=== PATIENT | female | born 1960 | race Caucasian/White ===

== ENCOUNTER 2017-09-03 12:08 | Emergency (ER) | payer BC ==
[~2017-09-03] VITALS: Ht 172.7 cm; Wt 65.0 kg
[2017-09-03 12:25] VITALS: BP 119/78; PULSE 88; RESP 16; TEMP 98.4; O2SAT 98
[2017-09-03] MEDS ORDERED: NATU32.5 PO (12:32)
[2017-09-03] MEDS ORDERED: IBUPROFEN 600 MG TAB PO ONE (13:15)
--- NOTE | 2017-09-03 13:52 | RADRPT ---
EXAM DATE/TIME: 09/03/2017 13:29 [place] COMPARISON: No previous studies available for comparison. INDICATIONS : Left ankle pain post fall. MEDICAL HISTORY : None. SURGICAL HISTORY : None. ENCOUNTER: Initial ACUITY: 2 days PAIN SCORE: 9/10 LOCATION: Left lateral ankle FINDINGS: Three view exam was performed of the left ankle. The bony structures are in normal alignment. No ev idence of fracture, dislocation, however there is soft tissue swelling. The ankle mortise is intact. No radiopaque foreign bodies are seen. Bony mineralization is normal. CONCLUSION: Soft tissue swelling no fracture. Gustavo Haney MD on September 03, 2017 at 13:50 Board Certified Radiologist. This report was verified electronically.
--- NOTE | 2017-09-03 14:05 | PD ---
HPI . Left ankle injury Chief Complaint: Injury Time Seen by Provider: 12:45 Travel History International Travel<30 days: No Contact w/Intl Traveler<30days: No Traveled to known affect area: No History of Present Illness HPI 57-year-old female presents emergency department for evaluation of left ankle pain that started yesterday when she stepped off of a curb and high heels and twisted her ankle. Patient has been ambulatory with a limp. Patient has no major medical history. Patient denies any other injuries with this event. The left foot is neurovascularly intact. There is no obvious deformity. PFSH Social History Alcohol Use: No Tobacco Use: No Substance Use: No Allergies-Medications (Allergen,Severity, Reaction): Coded Allergies: No Known Allergies (Unverified , 09/03/17) Reported Meds & Prescriptions Reported Meds & Active Scripts Active Reported Nature-Throid (Thyroid) 32.5 Mg Tab 32.5 Mg PO DAILY Review of Systems Except as stated in HPI: all other systems reviewed are Neg Physical Exam Narrative GENERAL: Well-nourished, well-developed 57-year-old female patient in no acute distress. Nontoxic appearing. SKIN: Focused skin assessment warm/dry. HEAD: Normocephalic. Atraumatic. NECK: Supple, trachea midline. No JVD or lymphadenopathy. CARDIOVASCULAR: Regular rate and rhythm without murmurs, gallops, or rubs. Pedal pulses +2 bilaterally. RESPIRATORY: Breath sounds equal bilaterally. No accessory muscle use. GASTROINTESTINAL: Abdomen soft, non-tender, nondistended. MUSCULOSKELETAL: Mild ecchymosis and edema noted to the surrounding lateral malleolus. No obvious deformity. BACK: Nontender without obvious deformity. No CVA tenderness. Data Data Last Documented VS Vital Signs Date Time Temp Pulse Resp B/P (MAP) Pulse Ox O2 Delivery O2 Flow Rate FiO2 09/03/17 12:25 98.4 88 16 119/78 (92) 98 Orders Orders Ankle, Complete ([id number]) (09/03/17 13:05) Ice/Cold Pack (09/03/17 13:05) Ibuprofen (Motrin) (09/03/17 13:15) Splint Or Brace Apply/Monitor (09/03/17 14:05) Ed Discharge Order (09/03/17 14:05) Ketorolac Inj (Toradol Inj) (09/03/17 14:15) [facility] Medical Decision Making Medical Screen Exam Complete: Yes Emergency Medical Condition: Yes Differential Diagnosis Differential diagnosis as include but not limited to ankle sprain, ankle contusion, foot contusion, ankle fracture Narrative Course 57-year-old female presents emergency department for evaluation of left ankle pain that occurred yesterday when she stepped off of a curb in high heels and twisted her ankle. There is mild ecchymosis and edema noted proximal to the lateral malleolus. The patient is ambulatory with a limp. The left foot is neurovascularly intact. The patient has no major medical history and denies any other injuries associated with the ankle twisting. X-ray of the left ankle ordered and pending. Ice applied to the left ankle. Patient referred not to take ibuprofen because she read that it was harsh on the stomach, I am injection of Toradol ordered instead per patient's request. X-ray of the left ankle shows soft tissue swelling, no fractures or dislocation. Ang wrap applied to the left ankle. Patient will be discharged home with instructions for Rice therapy and to follow-up with her primary care. Diagnosis Primary Impression: Ankle sprain Qualified Codes: S93.402A - Sprain of unspecified ligament of left ankle, initial encounter Referrals: Primary Care Physician Patient Instructions: Ankle Sprain (ED), General Instructions Additional Instructions: Please return to emergency department if your symptoms return or worsen. Follow up with your primary care provider. Rice therapy to left ankle, rest, ice, Ang wrap with activity and elevate with resting. Disposition: 01 DISCHARGE HOME Condition: Stable Manju Garcia Sep 03, 2017 14:05
[2017-09-03] MEDS ORDERED: KETOROLAC TROMETHAMINE 60 MG/2 ML (IM) VIAL IM ONE (14:15)
== END 2017-09-03 14:28 | disposition home or self-care (01) ==
LOC: PHEFT 12:08
DX: S93.402A Sprain of unspecified ligament of left ankle, initial encounter (principal); X50.1XXA Overexertion from prolonged static or awkward postures, initial encounter; Y93.01 Activity, walking, marching and hiking
CPT/HCPCS: 73610; 96372; 99284; J1885